=== PATIENT | male | born 1985 | race African-American/Black ===

== ENCOUNTER → 2019-08-08 | Outpatient (CLI) | payer OTHER ==
--- NOTE | 2019-08-08 09:36 | KCIC ---
MR of the right knee HISTORY: Right knee pain. Injury or 3 weeks ago. Catching. TECHNIQUE:. Routine multiplanar are obtained. FINDINGS: No evidence of medial meniscal tear. No evidence of lateral meniscal tear. Anterior and posterior cruciate ligaments are intact. Medial collateral ligament demonstrates mild proximal thickening, likely scarring, no acute tear. Iliotibial band unremarkable. Fibular collateral ligament, biceps femoris tendon and popliteus tendon are intact. Extensor mechanism is intact. Small joint effusion. Trace Hou's cyst. Osteochondral defect at the lateral aspect of the medial femoral condyle, with well-defined chronic margins. Compatible with old osteochondral fracture, and the loose displaced osteochondral fragment is located in the medial patellar recess. This osteochondral fragment measures 14 mm x 19 mm transverse dimensions, by 7 mm depth and roughly corresponds in size with defect. Chondral thinning of the remaining aspect of the medial joint compartment. There is also mild lateral compartment chondromalacia and patellofemoral compartment chondromalacia. No evidence of acute appearing fracture or aggressive bone destruction. IMPRESSION: 1. Chronic appearing osteochondral lesion of the lateral aspect of the medial femoral condyle, with a loose displaced corresponding osteochondral fragment in the medial patellar recess. 2. DJD. Electronically signed by: Vladislav Cordero MD (08/08/2019 9:33 AM) [id number]
== END ==
LOC: KCIC MRI 07:45
PROVIDERS: ATTEND Orthopaedic Surgery
DX: M17.11 Unilateral primary osteoarthritis, right knee (principal); M25.861 Other specified joint disorders, right knee; M25.461 Effusion, right knee
CPT/HCPCS: 73721

== ENCOUNTER → 2019-09-11 | Outpatient (CLI) | payer OTHER | END | disposition home or self-care (01) | LOC: LAB 13:41 | PROVIDERS: ATTEND Orthopaedic Surgery | DX: Z01.818 Encounter for other preprocedural examination (principal); Z11.59 Encounter for screening for other viral diseases; M23.41 Loose body in knee, right knee | CPT/HCPCS: U0003-CS ==

== ENCOUNTER 2019-09-15 08:48 | Day surgery (SDC) | payer OTHER ==
[~2019-09-15] VITALS: Ht 182.9 cm; Wt 146.0 kg
[~2019-09-15 08:48] MED LIST: CLINDAMYCIN 900MG PREMIX 50 ML IV PRN; HYDROmorphone 2 MG/ML VIAL IV PRN; IV RINGERS,LACTATED 1000ML 1,000 ML IV SCH; MORPHINE SULFATE 2 MG/ML VIAL. IV PRN; ONDANSETRON PF 4 MG/2 ML VIAL. IV PRN; PROCHLORPERAZINE 10 MG/2 ML VIAL. IV PRN; fentaNYL PF VIAL 100 MCG/2 ML VIAL IV PRN
[2019-09-15] MEDS ORDERED: DEXAMETHASONE SOD PHOS 4 MG/ML VIAL ONE (09:04)
[2019-09-15] MEDS ORDERED: fentaNYL PF VIAL 100 MCG/2 ML VIAL ONE (09:04)
[2019-09-15] MEDS ORDERED: MIDAZOLAM HCL/PF 2 MG/2 ML VIAL. ONE (09:04)
[2019-09-15] MEDS ORDERED: LIDOCAINE 2% PF 5 ML VIAL. ONE (09:04)
[2019-09-15] MEDS ORDERED: PROPOFOL 10 MG/ML (20ML) VIAL. IV ONE ×2 (09:04→11:26)
[2019-09-15] MEDS ORDERED: ONDANSETRON PF 4 MG/2 ML VIAL. ONE (09:04)
[2019-09-15] MEDS ORDERED: BUPIVACAINE-EPI 0.25%-1:200000 MPF 30 ML VIAL. ONE ×2 (10:09)
[2019-09-15] MEDS ORDERED: EPINEPHrine VIAL 30 MG/30 ML VIAL ONE (10:09)
--- NOTE | 2019-09-15 12:06 | PDOC4 ---
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 Estimated Blood Loss: 5 mL Specimens: none (arthroscopic photos were taken of the loose bodies. The loose bodies were given to the patient in a specimen cup.) Drains: none Complications: none Tourniquet time: 25 minutes at 350 mm Hg Indications for Procedure: The patient is a 34-year-old with right knee pain and mechanical symptoms, unrelieved with nonoperative treatment. 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 We talked about the risks and benefits of proceeding with an arthroscopic procedure. We also discussed options for surgical treatment such as large osteochondral allograft. He had simple arthroscopic excision of left knee loose body for similar condition, and the left knee is asymptomatic, so I am optimistic that simple loose body removal will relieve his symptoms on the right knee. We talked about potential risks of ongoing pain, progressive arthritis, bleeding, infection, blood clots, or other potential surgical or anesthetic complications. All of the patient's questions about surgery were answered and he desired to proceed. Written consent was obtained. Description of Operation: The patient was identified in the preoperative holding area. The correct right knee was marked by me. The patient was taken to the operating room, where a general anesthetic was used. Preoperative antibiotics were given intravenously. A time-out procedure was performed. A tourniquet was placed on the upper thigh. Local anesthetic 20 mL of 0.25% bupivacaine was injected using sterile technique into the knee joint. The limb was prepared circumferentially with ChloraPrep solution and sterile waterproof arthroscopy drapes were applied. The limb was exsanguinated with an Esmarch bandage and the tourniquet was inflated. Lateral and medial arthroscopy portals were established. The medial meniscus was normal and stable to probing.The medial tibiofemoral joint showed the source defect which is nicely scarred over with granulation, and does not show as much of a bony defect as I would have expected. The surface is relatively smooth, stable to probing, and I do not see any definitive exposed bone, other than a small area at the intercondylar notch. I measured the source defect and it is 25 mm anterior to posterior, and 15 mm in width. I did a shaving chondroplasty of some of the loose cartilaginous edges of the source defect to smooth those edges and prevent any cartilaginous loose bodies from forming. The intercon dylar notch showed a 5 mm loose body which was removed, and the ACL was intact. The lateral tibiofemoral joint showed a normal lateral meniscus, so no lateral meniscectomy was required.The lateral articular surfaces showed chondromalacia [place] grade I, so no chondroplasty was required. The patellofemoral joint showed normal articular surfaces so no chondroplasty was required. I examined the suprapatellar pouch, the medial lateral gutters, and found the large osteochondral fragment in the lateral gutter. This was retrieved by expanding the lateral portal, and was removed with a grasper. A photograph was taken with the arthroscope, and the removed loose body is 23 mm in length and 13 mm in width. My therapist's assistant Ulices manipulated the knee into the correct positions for arthroscopy. For example the knee was held in full extension by Ulices while I removed the loose body, visualizing the loose body with the arthroscope in my right hand, and using the grasper in my left hand. The suprapatellar pouch, medial and lateral gutters were free of additional loose bodies. Copious irrigation was used to drain all chondral fragments, and the knee was drained of fluid. The portals were closed by my therapist's assistant with 3-0 Prolene interuppted sutures. Additional local anesthetic, 30 mL of 0.25% bupivacaine with epinephrine was injected. A bulky sterile dressing was applied and the tourniquet was released. Needle and sponge counts were correct and there were no apparent complications. The loose bodies were given to the patient in a specimen cup as requested by the patient. LYNDA SPIVEY MD Sep 15, 2019 12:06
[2019-09-15 12:20] VITALS: BP 148/71
[2019-09-15] MEDS ORDERED: HYDROcodone/APAP 7.5/325MG 1 TAB TABLET PO PRN ×2 (12:30)
== END 2019-09-15 12:58 | disposition home or self-care (01) ==
LOC: SURG 08:48
PROVIDERS: ATTEND Orthopaedic Surgery
DX: M23.41 Loose body in knee, right knee (principal); M94.261 Chondromalacia, right knee; E66.01 Morbid (severe) obesity due to excess calories; Z68.42 Body mass index [BMI] 45.0-49.9, adult; Z87.39 Personal history of other diseases of the musculoskeletal system and connective tissue; Z72.89 Other problems related to lifestyle
CPT/HCPCS: 29877; A7015; J0171; J1100; J2250; J2405; J2704; J3010; J3490; J7120